=== PATIENT | female | born 1995 | race Hispanic/Latino ===

== ENCOUNTER 2017-03-13 20:19 | Inpatient (IN) ==
[2017-03-13] MEDS ORDERED: PEPCID IV PRN (20:38)
[2017-03-13] MEDS ORDERED: KEFZOL 1 GM/D5W 1 GM/50 ML IVPB IV PRN (20:38)
[2017-03-13] MEDS ORDERED: PEPCID PO PRN (20:38)
[2017-03-13] MEDS ORDERED: TYLENOL PO PRN (20:38)
[2017-03-13] MEDS ORDERED: LR 1,000 ML IV SCH (20:38)
[2017-03-13] MEDS ORDERED: STADOL IV PRN (20:38)
[2017-03-13] MEDS ORDERED: ZOFRAN IV PRN (20:38)
[2017-03-13] MEDS ORDERED: AMPICILLIN 2 GM/NS 2 GM/100 ML IVPB IV ONE (20:38)
[2017-03-13] MEDS ORDERED: PITOCIN 30 UNITS/LR 30 UNITS/500 ML IV.SOLN IV SCH (20:38)
[2017-03-13] MEDS ORDERED: SODIUM CHLORIDE 0.9% INJ SCH (20:45)
[2017-03-13] MEDS ORDERED: XYLOCAINE-MPF 1% INJ PRN ×2 (20:47→21:00)
[2017-03-13 20:54] LABS: URINE SOURCE VOIDED
[2017-03-13 20:54] LABS: MANUAL DIFF NEEDED? NO
[2017-03-13 20:57] LABS: UR AMPHETAMINES QUAL NONE DETECTED (NONE DETECT); UR BARBITUATES QUAL NONE DETECTED (NONE DETECT); UR BENZODIAZEPIN QUAL NONE DETECTED (NONE DETECT); UR CANNABINOIDS QUAL NONE DETECTED (NONE DETECT); UR COCAINE QUAL NONE DETECTED (NONE DETECT); UR MDMA QUAL NONE DETECTED (NONE DETECT); UR METHADONE QUAL NONE DETECTED (NONE DETECT); UR METHAMPHETAMINE QUAL NONE DETECTED (NONE DETECT); UR OPIATES QUAL NONE DETECTED (NONE DETECT); UR OXYCODONE QUAL NONE DETECTED (NONE DETECT); UR PCP QUAL NONE DETECTED (NONE DETECT); UR TCA QUAL NONE DETECTED (NONE DETECT)
[2017-03-13] MEDS ORDERED: BENADRYL PO PRN (21:00)
[2017-03-13] MEDS ORDERED: MINERAL OIL PO PRN (21:00)
[2017-03-13] MEDS ORDERED: PERI MEDS (DERMOPLAST/NUPERCAINAL/TUCKS) MISC PRN (21:00)
[2017-03-13] MEDS ORDERED: PITOCIN 30 UNITS/LR 30 UNITS/500 ML IV.SOLN IV ONE (21:00)
[2017-03-13] MEDS ORDERED: NORCO-10 PO PRN (21:00)
[2017-03-13] MEDS ORDERED: BENADRYL IV PRN (21:00)
[2017-03-13] MEDS ORDERED: PITOCIN IM PRN (21:00)
[2017-03-13] MEDS ORDERED: NORCO-5 PO PRN (21:00)
[2017-03-13] MEDS ORDERED: HYDROXYZINE PO PRN (21:00)
[2017-03-13] MEDS ORDERED: HYDROXYZINE IM PRN (21:00)
[2017-03-13] MEDS ORDERED: MOTRIN PO PRN (21:00)
[2017-03-13] MEDS ORDERED: BOOSTRIX VACCINE IM ONE (21:00)
[2017-03-13] MEDS ORDERED: M-M-R II VACCINE SUBQ ONE (21:00)
[2017-03-13] MEDS ORDERED: CYTOTEC PO PRN (21:00)
[2017-03-13] MEDS ORDERED: AMBIEN PO PRN (21:00)
[2017-03-13] MEDS ORDERED: PITOCIN 20 UNITS/LR 20 UNITS/1,000 ML IV.SOLN IV SCH (21:00)
[2017-03-13 21:03] LABS: BASO% 0.1 % (0.0-0.8); EOS# 0.03 X1000 (0.0-0.7); EOS% 0.4 % (0.0-10.0); HEMATOCRIT 31.3 % (37.0-47.0); HEMOGLOBIN 10.5 g/dL (12.0-16.0); IMM GRAN# 0.04 X1000 (0.0-0.04); IMM GRAN% 0.5 % (0.0-0.5); LYMPH# 2.77 X1000 (1.2-3.4); LYMPH% 32.6 % (20.5-51.1); MCH 26.1 PG (27-31); MCHC 33.5 g/dL (33-37); MCV 77.9 FL (81-99); MONO# 0.46 X1000 (0.11-0.59); MONO% 5.4 % (1.7-9.3); MPV 12.7 FL (7.4-10.4); PLT 170 X1000 (130-400); RBC 4.02 XMIL (4.2-5.4)
[2017-03-13 21:04] LABS: BILIRUBIN URINE NEGATIVE (NEGATIVE); BLOOD URINE 4+ (NEGATIVE); CLARITY VERY CLOUDY (CLEAR); COLOR YELLOW; GLUCOSE URINE NEGATIVE (NEGATIVE); LEUKOCYTES URINE 2+ (NEGATIVE); NITRITE URINE NEGATIVE (NEGATIVE); PROTEIN URINE TRACE mg/dL (NEGATIVE); SP GRAVITY URINE 1.005; UROBILINOGEN URINE NORMAL
[2017-03-13 21:25] LABS: RPR NON-REACTIVE (NONREACTIVE)
[2017-03-13 21:32] LABS: RAPID HIV PRESUMPTIVE NEGATIVE
[2017-03-13] MEDS: PERICOLACE PO SCH (21:58)
[2017-03-14 06:27] LABS: HEMATOCRIT 28.1 % (37.0-47.0); HEMOGLOBIN 9.1 g/dL (12.0-16.0); MCH 25.9 PG (27-31); MCHC 32.4 g/dL (33-37); MCV 80.1 FL (81-99); MPV 12.7 FL (7.4-10.4); RBC 3.51 XMIL (4.2-5.4)
[2017-03-14 08:42] LABS: RUBELLA SCREEN IMMUNE (IMMUNE)
[2017-03-14] MEDS: AMPICILLIN 1 GM/NS 1 GM/50 ML IVPB IV SCH ×2 (11:59→17:53)
[2017-03-14] MEDS: PERICOLACE PO SCH (20:10)
[2017-03-15 10:43] LABS: HEPATITIS B SURFACE ANTIGEN SEE COMMENTS
[2017-03-15 10:45] LABS: HIV ANTIBODY SCREEN SEE COMMENTS
== END 2017-03-15 13:45 | disposition home or self-care (01) ==
LOC: P.OPLD 20:19 → P.LD 20:30 → P.WC 03-14 00:22
PROVIDERS: ADMIT Obstetrics & Gynecology; ATTEND Obstetrics & Gynecology